=== PATIENT | female | born 1960 | race Caucasian/White ===

== ENCOUNTER → 2019-05-25 14:38 | Outpatient (CLI) | payer SELFPAY ==
--- NOTE | 2019-05-25 14:50 | CT_ITS ---
STUDY: CT ABDOMEN WITH CONTRAST REASON FOR EXAM: Female, 59 years old. HEPATOMEGALY, ABD DISCOMFORT X 4 MONTHS RADIATION DOSAGE (If Supplied By Facility): CTDIvol = ( 20 ) mGy, DLP = ( 497.26 ) mGycm TECHNIQUE: Transaxial images were obtained post I.V. administration of IV 100mL Isovue-300, and with oral contrast. Sagittal and coronal images were reconstructed. Individualized dose optimization techniques were used for this CT. COMPARISON: None. FINDINGS: Small right pleural effusion with mild right basilar atelectasis. Massive enlargement of the left atrium with the enlargement of the right atrium and right ventricle. There is decreased attenuation of the liver consistent with steatosis. Hepatomegaly. There is enlargement of the pulmonary veins most likely secondary to the cardiomegaly and enlargement of the chambers. Normal gallbladder and extrahepatic biliary system. Normal spleen. Normal pancreas. Ascites. Normal bilateral adrenal glands. Normal right kidney. 1 some mucous cyst in the lower pole of the left kidney. Normal visualized stomach. Normal small intestine. Normal colon. The appendix is visualized and appears normal. Normal abdominal aorta. Normal inferior vena cava. Normal retroperitoneum. Diffuse subcutaneous edema. Normal osseous structures. CT/Abdomen WITH IV Contrast IMPRESSION: Massive enlargement of the left atrium as well as enlargement of the right atrium and right ventricle with the hepatomegaly and hepatic venous congestion. Ascites. Electronically Signed: Evan Meza, at 15:31 EST , Service support ,
== END ==
PROVIDERS: PCP Preventive Medicine Public Health & General Preventive Medicine; Referring Provider Preventive Medicine Public Health & General Preventive Medicine; Visit Provider Preventive Medicine Public Health & General Preventive Medicine
DX: R16.0 Hepatomegaly, not elsewhere classified (principal); R10.9 Unspecified abdominal pain
CPT/HCPCS: 74160; Q9967

== ENCOUNTER → 2019-06-06 13:01 | Outpatient (CLI) | payer SELFPAY ==
--- NOTE | 2019-06-06 13:06 | ECHOD_ITS ---
Reason For Study: CMP, SOB Procedure This was a 2D Doppler, Color Flow transthoracic echocardiogram. Exam performed in department. Left Ventricle Normal LV size. The estimated ejection fraction is 55 %. Stage 3 diastolic dysfunction. No regional wall motion abnormalities noted. Right Ventricle Normal RV size. Normal systolic function. Atria Massive dilatattion. Normal right atrium. Mitral Valve Bileaflet diffuse mitral valve thickening. Severe (4+) eccentric mitral valve insufficiency. Tricuspid Valve Normal tricuspid valve. Moderate (2+) tricuspid valve insufficiency. Pulmonary artery systolic pressure is 58 mmHg. Moderate pulmonary hypertension. Aortic Valve Normal aortic valve. Trisinus/trileaflet aortic valve. Mild-Moderate (1-2+) eccentric aortic valve insufficiency. Pulmonic Valve Normal pulmonic valve. Great Vessels Normal aortic root. The pulmonary artery is normal size. Normal inferior vena cava. Pericardium/Pleural Small pericardial effusion. MMode/2D Measurements & Calculations LVIDd: 7.9 cm IVSd: 1.3 cm Ao root diam: 3.7 cm LVIDs: 5.7 cm LVPWd: 1.1 cm LA dimension: 9.4 cm RVDd: 4.2 cm FS: 28.5 % LAV(MOD-sp2): 993.4 ml LA A4 area: 122.1 cm2 LAV(MOD-sp4): 858.5 ml Time Measurements MV dec time: 0.14 sec Doppler Measurements & Calculations MV E max james: 147.2 cm/sec Lat Peak E' James: 17.2 cm/sec Med Peak E' James: 8.8 cm/sec MV A max james: 41.3 cm/sec E/E' lat: 8.6 E/E' med: 16.7 MV E/A: 3.6 MV V2 max: 200.1 cm/sec MV P1/2t max james: 200.8 cm/sec Ao V2 max: 115.5 cm/sec MV max P.0 mmHg MV P1/2t: 58.5 msec Ao max P.4 mmHg MV V2 mean: 87.4 cm/sec Ao V2 mean: 68.5 cm/sec MV mean P.2 mmHg MV dec slope: 1005 cm/sec2 Ao mean P.3 mmHg MV V2 VTI: 39.2 cm MVA(P1/2t): 3.8 cm2 Ao V2 VTI: 13.3 cm AI max james: 424.3 cm/sec LV V1 max: 81.8 cm/sec MR max james: 611.9 cm/sec AI max P.0 mmHg LV V1 max P.7 mmHg MR max P.0 mmHg AI dec slope: 210.5 cm/sec2 LV V1 mean P.3 mmHg MR mean james: 459.4 cm/sec AI P1/2t: 590.3 msec LV V1 mean: 51.4 cm/sec MR mean P.5 mmHg LV V1 VTI: 10.6 cm MR VTI: 180.4 cm PA V2 max: 56.6 cm/sec TR max james: 366.6 cm/sec TR max P.8 mmHg Interpretation Summary Normal LV size. The estimated ejection fraction is 55 %. Stage 3 diastolic dysfunction. Massive dilatattion Severe (4+) eccentric mitral valve insufficiency. Moderate pulmonary hypertension. Small pericardial effusion. Ordering Physician: Moses Young Referring Physician: Moses Young Performed By: Robbie Matt RCS
== END ==
PROVIDERS: PCP Preventive Medicine Public Health & General Preventive Medicine; Referring Provider Preventive Medicine Public Health & General Preventive Medicine; Visit Provider Preventive Medicine Public Health & General Preventive Medicine
DX: I25.10 Atherosclerotic heart disease of native coronary artery without angina pectoris (principal); I50.9 Heart failure, unspecified
CPT/HCPCS: 93306